=== PATIENT | female | born 1965 | race Caucasian/White ===

== ENCOUNTER → 2017-01-08 | Day surgery (SDC) | payer OTHER ==
[~2017-01-08] MED LIST: ALBUTEROL 0.5ML INH; ANTACID650 MG PO; ATORVASTATIN CA10 MG PO; CALCIUM 500 MG1 EACH PO; EASY-LAX100 MG PO; FENOFIBRATE48 MG PO; FOLIC ACID1 MG PO; HYDROCODON-ACE1 EAC7 PO; K-DUR20 ME1; KALETRA 200-501 EACH PO; LANTUS100 UNITS/; MICONAZOLE28 GM TOP; MOTION RELIEF25 MG PO; NEURONTIN100 MG PO; NEUTRA-PHOS1.25 GM; PANTOPRAZOLE SO40 MG PO; POLYETHYLENE G500 G1 MC; PROBIOTIC1 EAC1 PO; REMERON15 MG PO; SLOW-MAG64 MG PO; TOPAMAX50 MG; TRIUMEQ TABLET1 EACH PO; VITAMIN D350000 UNIT PO; ZYRTEC10 M1 PO
--- NOTE | ~2017-01-08 | OR ---
Unit #: [id number] #: [id number] Patient: CHRISTIAN GARCIA [id number] [address] [place], [place] [address] [id number] MR#: [id number] NAME: CHRISTIAN GARCIA ROOM: Date of Procedure: 01/08/2017 Admission Date: 01/08/2017 Surgeon: Nestor Diallo M.D. : 1965 Attending Physician: Nestor Diallo M.D. Referring Physician: Nestor Diallo M.D. Primary Care Physician: Rose Cooper M.D. OPERATIVE REPORT PREOPERATIVE DIAGNOSIS Right hydronephrosis. POSTOPERATIVE DIAGNOSIS Right hydronephrosis. PROCEDURES PERFORMED 1. Cystoscopy. 2. Right retrograde pyelogram. 3. Interpretation of right retrograde pyelogram. 4. Right ureteroscopy. 5. Right stent removal. ANESTHESIA General. INDICATIONS FOR PROCEDURE The patient is a pleasant 51-year-old female with HIV and history of extensive nephrolithiasis including a right percutaneous nephrolithotomy. She presented with signs of urosepsis and mild right hydronephrosis. Last month, she was treated with culture specific antibiotics and antifungals. She had had a right stent placed. Risks, benefits, and alternatives including bleeding, infection, damage to adjacent structures, need for further surgery as well as risk of anesthesia were explained to the patient. Informed consent was obtained and she wished to proceed. DESCRIPTION OF PROCEDURE The patient was taken to the operative suite and properly identified. After the application of satisfactory general anesthetic, the patient was placed in dorsal lithotomy position. All pressure points were padded to satisfaction of surgical, anesthetic, and nursing teams. I introduced a rigid 22-Welsh cystoscope. The bladder had changes that consistent with chronic cystitis. The right stent was removed with a grasper and brought out through the meatus. I passed a 0.035 Sensor wire. I passed a Pollack catheter sheath through the wire. There was no hydronephrosis. There was some mildly delayed drainage across the mid ureter, but contrast did drain across this. Interpretation of right retrograde pyelogram, there was no hydronephrosis. There was some mild dilation of the right proximal ureter, but contrast did drain beyond this. There was a single collecting system. There were no filling defects. Unit #: [id number] #: [id number] Patient: CHRISTIAN GARCIA I passed a semi-rigid ureteroscope alongside the wire and into the kidney. There was no ureteral stricture and I was able to look my way all the way into the kidney. I elected to leave her without a stent. I believe that she has nonobstructive hydronephrosis. The patient tolerated the procedure well without complication. She was transported stable and extubated to PACU. Dictated by... Monico Solorio/marcos TD: 01/09/2017 06:24 JOB #: [id number] OPERATIVE REPORT Page 1 of 1 X Nestor Diallo MD X PROCEDURE OPERATIVE NOTE
--- NOTE | ~2017-01-08 | EKG ---
PATIENT: CHRISTIAN GARCIA UNIT #: [id number] Ventricular Rate: 73 BPM Atrial Rate: 73 BPM P-R Interval: 154 ms QRS Duration: 84 ms Q-T Interval: 378 ms QTC Calculation(Bezet): 416 ms P Shepherd: 52 degrees Calculated R Shepherd: 30 degrees Calculated T Shepherd: 17 degrees Diagnosis Line: Normal sinus rhythm Diagnosis Line: Normal ECG Diagnosis Line: No previous ECGs available Diagnosis Line: Confirmed by EVAN GORMAN MD ([id number]) on 01/09/2017 Diagnosis Line: 9:15:28 PM INTERPRETING MD: SHERIF LIPSCOMB
[2017-01-08 14:08] LABS: BASOPHIL% 0.7 % (0-2.5); EOSINOPHIL# 0.2 X10e3 (0-0.7); EOSINOPHIL% 2.2 % (0.0-7.0); HEMATOCRIT 37.9 % (35.0-45.0); HEMOGLOBIN 12.7 gm/dL (12.0-16.0); LYMPHOCYTE# 1.9 X10e3 (1.0-3.5); LYMPHOCYTE% 26.4 % (17.0-45.0); MEAN CORPUSCULAR HEMOGLOBIN 33.6 PG (28-34); MEAN CORPUSCULAR HGB CONC 33.6 g/dL (30-36); MONOCYTE# 0.5 X10e3 (0-1.0); NEUTROPHIL# 4.5 X10e3 (1.5-7.1); NEUTROPHIL% 63.7 % (40-75); PLATELET COUNT 256 X10e3 (140-420); RED BLOOD COUNT 3.79 X10e (3.90-5.30); RED CELL DISTRIBUTION WIDTH 14.2 % (11.0-15.5); WHITE BLOOD COUNT 7.1 X10e3 (4.0-10.5)
[2017-01-08 14:38] LABS: DIFF IND NO
== END | disposition home or self-care (01) ==
LOC: CSUR 13:18
PROVIDERS: Urology
DX: N13.30 Unspecified hydronephrosis (principal); H26.9 Unspecified cataract; N18.9 Chronic kidney disease, unspecified; F41.9 Anxiety disorder, unspecified; E11.9 Type 2 diabetes mellitus without complications; B20 Human immunodeficiency virus [HIV] disease; I10 Essential (primary) hypertension; D64.9 Anemia, unspecified; N12 Tubulo-interstitial nephritis, not specified as acute or chronic; G47.00 Insomnia, unspecified; F17.210 Nicotine dependence, cigarettes, uncomplicated; Z86.73 Personal history of transient ischemic attack (TIA), and cerebral infarction without residual deficits; Z98.51 Tubal ligation status; Z79.891 Long term (current) use of opiate analgesic; Z79.899 Other long term (current) drug therapy; Z79.4 Long term (current) use of insulin; Z87.440 Personal history of urinary (tract) infections; Z87.19 Personal history of other diseases of the digestive system; Z87.442 Personal history of urinary calculi; Z88.1 Allergy status to other antibiotic agents; Z88.8 Allergy status to other drugs, medicaments and biological substances
CPT/HCPCS: 82947; 85025; 93005; J2248; J2250; J3010; J3370